=== PATIENT | male | born 1980 | race Caucasian/White ===

== ENCOUNTER 2021-08-14 21:55 | Emergency (ER) | payer BC ==
[~2021-08-14] VITALS: Ht 175.3 cm; Wt 90.0 kg
[2021-08-15] MEDS ORDERED: BACITRACIN ZINC OINT UDPKT TOP ONE (01:00)
[2021-08-15] MEDS ORDERED: HYDROCODONE/ACETAMINOPHEN 5/325MG TABLET PO ONE (01:00)
[2021-08-15] MEDS ORDERED: TETANUS, DIPHTHERIA, PERTUSSIS VAC/PF 0.5ML (>10YR OLD) IM ONE (01:45)
[2021-08-15] MEDS ORDERED: BO1 TP (02:36)
[2021-08-15] MEDS ORDERED: T3 PO (02:36)
[2021-08-15 02:56] VITALS: BP 127/82
== END 2021-08-15 03:00 | disposition home or self-care (01) ==
LOC: ER 21:55
DX: T24.231A Burn of second degree of right lower leg, initial encounter (principal); T31.0 Burns involving less than 10% of body surface; X12.XXXA Contact with other hot fluids, initial encounter; Y93.89 Activity, other specified; Y92.89 Other specified places as the place of occurrence of the external cause; Y99.8 Other external cause status
CPT/HCPCS: 16020; 90471; 90715; 99283